=== PATIENT | female | born 1990 | race Caucasian/White ===

== ENCOUNTER 2018-12-10 14:37 | Emergency (ER) | payer MEDICAID ==
[~2018-12-10] VITALS: Ht 177.8 cm; Wt 58.2 kg
[2018-12-10] MEDS ORDERED: normal saline 1000ML IV soln IVB ONE (15:15)
[2018-12-10 15:26] VITALS: BP 121/67
[2018-12-10 15:30] LABS: BASOPHILS % (AUTO) 0.4 % (0-1); EOSINOPHILS # (AUTO) 0.2 X10'3 (0-0.9); EOSINOPHILS % (AUTO) 1.7 % (0-6); HEMATOCRIT 43.7 % (35.0-45.0); HEMOGLOBIN 14.9 g/dl (12.0-16.0); LYMPHOCYTES # (AUTO) 2.5 X10'3 (1.1-4.8); LYMPHOCYTES % (AUTO) 27.3 % (21-51); MEAN CORPUSCULAR HEMOGLOBIN 28.1 PG (27.0-31.0); MEAN CORPUSCULAR HGB CONC 34.2 g/dL (33.0-36.5); MEAN CORPUSCULAR VOLUME 82.2 FL (78-98); MEAN PLATELET VOLUME 7.9 FL (7.4-10.4); MONOCYTES # (AUTO) 0.7 X10'3 (0-0.9); MONOCYTES % (AUTO) 7.9 % (2-12); NEUTROPHILS # (AUTO) 5.8 X10'3 (1.8-7.7); NEUTROPHILS % (AUTO) 62.7 % (42-75); PLATELET COUNT 411 X10'3 (140-440); RED BLOOD COUNT 5.32 X10'6 (4.20-5.60); RED CELL DISTRIBUTION WIDTH 13.4 % (11.5-14.5); WHITE BLOOD COUNT 9.3 X10'3 (4.5-11.0)
[2018-12-10 15:47] LABS: URINE AMPHETAMINE SCREEN NEGATIVE (Neg); URINE BARBITUATE SCREEN NEGATIVE (Neg); URINE BENZODIAZEPINES SCREEN NEGATIVE (Neg); URINE CANNABINOID SCREEN NEGATIVE (Neg); URINE COCAINE SCREEN NEGATIVE (Neg); URINE METHADONE SCREEN NEGATIVE (Neg); URINE OPIATE SCREEN NEGATIVE (Neg); URINE PHENCYCLIDINE SCREEN NEGATIVE (Neg)
[2018-12-10 15:50] LABS: ALANINE AMINOTRANSFERASE 36 U/L (12-78); ALBUMIN 3.1 G/DL (3.4-5.0); ALBUMIN/GLOBULIN RATIO 0.8 (1.1-1.5); ALKALINE PHOSPHATASE 75 IU/L (46-116); ANION GAP 11 (8-16); ASPARTATE AMINO TRANSFERASE 18 U/L (10-37); BILIRUBIN,TOTAL 0.4 MG/DL (0.1-1.0); BLOOD UREA NITROGEN 13 MG/DL (7-18); BUN/CREATININE RATIO 23.6 (6.6-38.0); CALCIUM 8.2 MG/DL (8.5-10.1); CHLORIDE 100 MMOL/L (99-107); CREATININE 0.55 MG/DL (0.40-0.90); ETHANOL < 0.010 GM/DL (0.0-0.010); GLUCOSE 101 MG/DL (70-104); POTASSIUM 3.8 MMOL/L (3.5-5.1); SODIUM 133 MMOL/L (135-145); TOTAL CARBON DIOXIDE 22.4 MMOL/L (24-32); TOTAL PROTEIN 6.8 G/DL (6.4-8.2); eGFR > 90 ML/MIN
[2018-12-10 15:51] LABS: CLARITY,URINE CLEAR (Clear); COLOR,URINE YELLOW (Yellow); GLUCOSE, URINE NEGATIVE (Neg); KETONES,URINE NEGATIVE (Neg); LEUKOCYTE ESTERASE ,URINE NEGATIVE (Neg); NITRITES, URINE NEGATIVE (Neg); OCCULT BLOOD,URINE NEGATIVE (Neg); PH,URINE 6.5 (4.8-8.0); PROTEIN,URINE NEGATIVE (Neg); UROBILINOGEN,URINE 0.2 E.U/dL (0.2-1.0)
[2018-12-10 15:52] LABS: UA COLLECTION TYPE CLN CATCH MIDSTREAM
[2018-12-10 15:53] LABS: INR 1.1 INR; PARTIAL THROMBOPLASTIN TIME 28 SECONDS (22-32)
--- NOTE | 2018-12-10 17:10 | NUR ---
relieving RN for lunch, pt is resting quietly on gurney,
[2018-12-10 17:11] LABS: URINE HCG NEGATIVE (NEG)
[2018-12-10] MEDS ORDERED: LOPE-144 PO (18:19)
[2018-12-10] MEDS ORDERED: HYDR-3686 PO (18:19)
== END 2018-12-10 19:08 | disposition home or self-care (01) ==
LOC: ER 14:38
DX: R55 Syncope and collapse (principal); F11.10 Opioid abuse, uncomplicated; L98.8 Other specified disorders of the skin and subcutaneous tissue; F15.90 Other stimulant use, unspecified, uncomplicated
CPT/HCPCS: 36415; 70450; 71045; 80053; 80305; 80320; 81003; 81025; 85025; 85610; 85730; 93005; 99284; J7030

== ENCOUNTER 2019-01-22 13:19 | Emergency (ER) | payer MEDICAID ==
[~2019-01-22 13:19] MED LIST: LOPE-144 PO
== END 2019-01-22 14:29 | disposition left against medical advice (07) ==
LOC: ER 13:20
DX: J00 Acute nasopharyngitis [common cold] (principal); Z53.21 Procedure and treatment not carried out due to patient leaving prior to being seen by health care provider

== ENCOUNTER 2023-02-27 23:17 | Emergency (ER) | payer MEDICAID ==
[~2023-02-27] VITALS: Ht 177.8 cm; Wt 78.8 kg
--- NOTE | 2023-02-28 01:20 | NUR ---
[facility] WAS NOTIFIED ABOUT THE URINE THAT WAS SENT. [facility]ACE[facility] STATED SHE WILL RECEIVE IT. IT HAS BEEN DOWN THERE UNRECEIVED BY THEM.
[2023-02-28 01:28] LABS: URINE HCG NEGATIVE (NEG)
[2023-02-28 01:43] LABS: CLARITY,URINE CLOUDY (Clear); COLOR,URINE YELLOW (Yellow); GLUCOSE, URINE NEGATIVE (Neg); KETONES,URINE NEGATIVE (Neg); LEUKOCYTE ESTERASE ,URINE TRACE (Neg); NITRITES, URINE NEGATIVE (Neg); OCCULT BLOOD,URINE NEGATIVE (Neg); PH,URINE 6.5 (4.8-8.0); PROTEIN,URINE NEGATIVE (Neg)
[2023-02-28 01:53] LABS: UA COLLECTION TYPE CLN CATCH MIDSTREAM
[2023-02-28 01:54] LABS: BACTERIA,URINE FEW /HPF (Neg); MUCUS STRANDS FEW /LPF (Neg); RBC,URINE 0-2 /HPF (0-2); SQUAMOUS EPITHELIAL CELL,UR FEW /LPF (FEW); WBC,URINE 20-30 /HPF (0-4)
[2023-02-28 01:55] LABS: AMORPHOUS PHOSPHATES 3+; WBC CLUMPS,URINE FEW /HPF (NEGATIVE)
[2023-02-28] MEDS ORDERED: TETanus/Pertussis (Acell)/Diphther VAC/PF (Tdap-Adult) 0.5ml syringe IMVAC ONE (01:55)
[2023-02-28] MEDS ORDERED: gentamicin 0.1% topical ointment 15gm TP SCH (01:55)
[2023-02-28] MEDS ORDERED: CefTRIAXone 1000mg IM Kit (w/lidocaine diluent) IM ONE (02:05)
[2023-02-28] MEDS ORDERED: azithromycin 250mg tablet PO ONE (02:05)
[2023-02-28 02:42] VITALS: BP 129/95
== END 2023-02-28 03:03 | disposition home or self-care (01) ==
LOC: ER 23:19
DX: L97.519 Non-pressure chronic ulcer of other part of right foot with unspecified severity (principal); F17.200 Nicotine dependence, unspecified, uncomplicated; F15.90 Other stimulant use, unspecified, uncomplicated; Z72.89 Other problems related to lifestyle; Z86.19 Personal history of other infectious and parasitic diseases; Z79.899 Other long term (current) drug therapy
CPT/HCPCS: 36415; 73630; 81001; 81025; 87077; 87088; 87186; 87491; 87591; 90471; 90715; 96372; 99284; J0696; A6449

== ENCOUNTER 2023-03-05 00:12 | Emergency (ER) | payer MEDICAID ==
[~2023-03-05] VITALS: Ht 177.8 cm; Wt 77.0 kg
[2023-03-05 00:16] VITALS: BP 138/103
[2023-03-05] MEDS ORDERED: AMOX500C2 PO (01:48)
[2023-03-05] MEDS ORDERED: amoxicillin 250mg capsule PO ONE (01:50)
[2023-03-05] MEDS ORDERED: acetaminophen 325mg tablet PO ONE (01:50)
[2023-03-05] MEDS ORDERED: ondansetron 4mg rapidly disintigrating tab PO ONE (01:50)
== END 2023-03-05 02:05 | disposition home or self-care (01) ==
LOC: ER 00:13
DX: K08.89 Other specified disorders of teeth and supporting structures (principal); F15.20 Other stimulant dependence, uncomplicated
CPT/HCPCS: 99284

== ENCOUNTER 2023-03-28 20:01 | Emergency (ER) | payer MEDICAID ==
[~2023-03-28] VITALS: Ht 177.8 cm; Wt 68.2 kg
[~2023-03-28 20:01] MED LIST changes: +AMOX500C2 PO
[2023-03-28 20:07] VITALS: BP 132/102
[2023-03-28 20:45] LABS: BASOPHILS # (AUTO) 0.1 X10'3 (0-0.2); EOSINOPHILS # (AUTO) 0.1 X10'3 (0-0.9); EOSINOPHILS % (AUTO) 1.9 % (0-6); HEMATOCRIT 41.2 % (35.0-45.0); HEMOGLOBIN 13.9 g/dl (12.0-16.0); LYMPHOCYTES # (AUTO) 2.9 X10'3 (1.1-4.8); LYMPHOCYTES % (AUTO) 39.8 % (21-51); MEAN CORPUSCULAR HEMOGLOBIN 28.3 PG (27.0-31.0); MEAN CORPUSCULAR HGB CONC 33.7 g/dL (33.0-36.5); MEAN CORPUSCULAR VOLUME 83.9 FL (78-98); MEAN PLATELET VOLUME 8.4 FL (7.4-10.4); MONOCYTES # (AUTO) 0.5 X10'3 (0-0.9); MONOCYTES % (AUTO) 6.8 % (2-12); NEUTROPHILS # (AUTO) 3.7 X10'3 (1.8-7.7); NEUTROPHILS % (AUTO) 50.5 % (42-75); PLATELET COUNT 297 X10'3 (140-440); RED BLOOD COUNT 4.91 X10'6 (4.20-5.60); RED CELL DISTRIBUTION WIDTH 13.6 % (11.5-14.5); WHITE BLOOD COUNT 7.2 X10'3 (4.5-11.0)
[2023-03-28 20:56] LABS: ALANINE AMINOTRANSFERASE 23 U/L (12-78); ALBUMIN 4.1 G/DL (3.4-5.0); ALBUMIN/GLOBULIN RATIO 1.3 (1.1-1.5); ALKALINE PHOSPHATASE 67 IU/L (46-116); ANION GAP 3 (8-16); ASPARTATE AMINO TRANSFERASE 17 U/L (10-37); BILIRUBIN,TOTAL 0.2 MG/DL (0.1-1.0); BLOOD UREA NITROGEN 15 MG/DL (7-18); BUN/CREATININE RATIO 20.5 (10.0-20.0); CALCIUM 9.3 MG/DL (8.5-10.1); CHLORIDE 104 MMOL/L (99-107); CREATININE 0.73 MG/DL (0.40-0.90); GLUCOSE 96 MG/DL (70-104); LIPASE 56 U/L (73-393); POTASSIUM 4.3 MMOL/L (3.5-5.1); SODIUM 139 MMOL/L (135-145); TOTAL CARBON DIOXIDE 31.7 MMOL/L (24-32); TOTAL PROTEIN 7.2 G/DL (6.4-8.2); eGFR > 90 ML/MIN
[2023-03-28 22:40] LABS: URINE HCG NEGATIVE (NEG)
[2023-03-28 22:41] LABS: CLARITY,URINE CLEAR (Clear); COLOR,URINE YELLOW (Yellow); GLUCOSE, URINE NEGATIVE (Neg); KETONES,URINE NEGATIVE (Neg); LEUKOCYTE ESTERASE ,URINE NEGATIVE (Neg); NITRITES, URINE NEGATIVE (Neg); OCCULT BLOOD,URINE NEGATIVE (Neg); PROTEIN,URINE NEGATIVE (Neg); UROBILINOGEN,URINE 0.2 E.U/dL (0.2-1.0)
[2023-03-28 22:49] LABS: UA COLLECTION TYPE CLN CATCH MIDSTREAM
== END 2023-03-28 22:00 | disposition home or self-care (01) ==
LOC: ER 20:01
DX: R10.2 Pelvic and perineal pain (principal); F15.10 Other stimulant abuse, uncomplicated; F11.10 Opioid abuse, uncomplicated
CPT/HCPCS: 36415; 80053; 81003; 81025; 83690; 85025; 99283

== ENCOUNTER 2024-09-30 08:56 | Emergency (ER) | payer MEDICAID ==
[~2024-09-30 08:56] MED LIST changes: -AMOX500C2 PO
[2024-09-30 09:14] VITALS: BP 129/91; PULSE 66; RESP 16; O2SAT 98
[2024-09-30 09:46] LABS: BILIRUBIN,URINE NEGATIVE (Neg); CLARITY,URINE CLOUDY (Clear); COLOR,URINE YELLOW (Yellow); GLUCOSE, URINE NEGATIVE (Neg); KETONES,URINE NEGATIVE (Neg); LEUKOCYTE ESTERASE ,URINE SMALL (Neg); NITRITES, URINE NEGATIVE (Neg); OCCULT BLOOD,URINE SMALL (Neg); PROTEIN,URINE TRACE mg/dl (Neg); UA COLLECTION TYPE CLN CATCH MIDSTREAM; UROBILINOGEN,URINE 0.2 E.U/dL (0.2-1.0)
[2024-09-30 09:51] LABS: URINE HCG NEGATIVE (NEG)
[2024-09-30 09:52] LABS: BACTERIA,URINE 1+ /HPF (Neg); MUCUS STRANDS NONE SEEN /LPF (Neg); SQUAMOUS EPITHELIAL CELL,UR FEW /LPF (FEW); WBC CLUMPS,URINE MODERATE /HPF (NEGATIVE); WBC,URINE TNTC /HPF (0-4)
[2024-09-30] MEDS ORDERED: NITR100C PO (09:59)
[2024-09-30 10:13] VITALS: TEMP 98.2
[2024-10-02 05:13] LABS: CHLAMYDIA TRACHOMATIS, NAA Negative (Negative)
== END 2024-09-30 10:18 | disposition home or self-care (01) ==
LOC: ER 08:57
DX: N39.0 Urinary tract infection, site not specified (principal); Z79.899 Other long term (current) drug therapy
CPT/HCPCS: 36415; 81001; 81025; 87077; 87088; 87186; 87491; 99283

== ENCOUNTER 2024-12-03 11:20 | Emergency (ER) | payer MEDICAID ==
[~2024-12-03] VITALS: Ht 177.8 cm; Wt 75.6 kg
[~2024-12-03 11:20] MED LIST changes: +NITR100C PO
[2024-12-03] MEDS ORDERED: DIF150T PO (11:57)
[2024-12-03] MEDS ORDERED: METR-159 PO (11:57)
[2024-12-03 12:03] LABS: BILIRUBIN,URINE NEGATIVE (Neg); CLARITY,URINE CLEAR (Clear); COLOR,URINE YELLOW (Yellow); GLUCOSE, URINE NEGATIVE (Neg); KETONES,URINE NEGATIVE (Neg); LEUKOCYTE ESTERASE ,URINE NEGATIVE (Neg); NITRITES, URINE NEGATIVE (Neg); OCCULT BLOOD,URINE NEGATIVE (Neg); PROTEIN,URINE NEGATIVE (Neg); UROBILINOGEN,URINE 0.2 E.U/dL (0.2-1.0)
[2024-12-03 12:07] LABS: UA COLLECTION TYPE NON-SPECIFIED
[2024-12-03] MEDS: azithromycin 250mg tablet PO ONE (12:08)
[2024-12-03] MEDS: CefTRIAXone 500MG IM Kit w/LIDOcaine IM ONE (12:09)
[2024-12-03 12:21] VITALS: BP 152/80; PULSE 65; RESP 16; TEMP 98; O2SAT 100
== END 2024-12-03 12:23 | disposition home or self-care (01) ==
LOC: ER 11:20
DX: N89.8 Other specified noninflammatory disorders of vagina (principal); F15.90 Other stimulant use, unspecified, uncomplicated; F11.90 Opioid use, unspecified, uncomplicated; F19.90 Other psychoactive substance use, unspecified, uncomplicated; Z72.89 Other problems related to lifestyle; Z79.899 Other long term (current) drug therapy
CPT/HCPCS: 36415; 81003; 87491; 87591; 96372; 99283; J0696

== ENCOUNTER 2025-01-31 17:42 | Emergency (ER) | payer MEDICAID | END 2025-01-31 18:11 | disposition left against medical advice (07) | LOC: ER 17:43 | DX: Z11.3 Encounter for screening for infections with a predominantly sexual mode of transmission (principal); Z53.21 Procedure and treatment not carried out due to patient leaving prior to being seen by health care provider ==

== ENCOUNTER 2025-02-04 23:30 | Emergency (ER) | payer MEDICAID ==
[~2025-02-04] VITALS: Ht 177.8 cm; Wt 73.0 kg
[2025-02-04 23:38] VITALS: BP 137/88; PULSE 65; RESP 16; O2SAT 100
[2025-02-05] MEDS ORDERED: METR-159 PO (00:07)
[2025-02-05] MEDS: CefTRIAXone 500MG IM Kit w/LIDOcaine IM ONE (00:14)
[2025-02-05] MEDS: azithromycin 250mg tablet PO ONE (00:14)
[2025-02-05 00:31] VITALS: TEMP 98
[2025-02-05 01:02] LABS: URINE HCG NEGATIVE (NEG)
== END 2025-02-05 00:27 | disposition home or self-care (01) ==
LOC: ER 23:31
DX: Z20.2 Contact with and (suspected) exposure to infections with a predominantly sexual mode of transmission (principal); Z72.53 High risk bisexual behavior
CPT/HCPCS: 36415; 81025; 87491; 87591; 96372; 99283; J0696

== ENCOUNTER 2025-02-16 23:07 | Emergency (ER) | payer MEDICAID ==
[~2025-02-16] VITALS: Ht 177.8 cm; Wt 65.0 kg
[~2025-02-16 23:07] MED LIST changes: +METR-159 PO
[2025-02-16 23:16] VITALS: TEMP 97.2
[2025-02-17 00:37] LABS: BASOPHILS # (AUTO) 0.1 X10'3 (0-0.2); BASOPHILS % (AUTO) 0.6 % (0-1); EOSINOPHILS # (AUTO) 0.2 X10'3 (0-0.9); EOSINOPHILS % (AUTO) 1.9 % (0-6); HEMOGLOBIN 13.3 g/dl (12.0-16.0); LYMPHOCYTES # (AUTO) 4.1 X10'3 (1.1-4.8); LYMPHOCYTES % (AUTO) 38.7 % (21-51); MEAN CORPUSCULAR HEMOGLOBIN 28.1 PG (27.0-31.0); MEAN CORPUSCULAR VOLUME 82.7 FL (78-98); MEAN PLATELET VOLUME 9.4 FL (7.4-10.4); MONOCYTES % (AUTO) 9.9 % (2-12); NEUTROPHILS # (AUTO) 5.1 X10'3 (1.8-7.7); NEUTROPHILS % (AUTO) 48.9 % (42-75); PLATELET COUNT 334 X10'3 (140-440); RED BLOOD COUNT 4.71 X10'6 (4.20-5.60); RED CELL DISTRIBUTION WIDTH 13.2 % (11.5-14.5); WHITE BLOOD COUNT 10.5 X10'3 (4.5-11.0)
[2025-02-17 00:47] LABS: ALANINE AMINOTRANSFERASE 60 U/L (12-78); ALBUMIN/GLOBULIN RATIO 1.4 (1.1-1.5); ALKALINE PHOSPHATASE 62 IU/L (46-116); ANION GAP 15 (8-16); ASPARTATE AMINO TRANSFERASE 77 U/L (10-37); BILIRUBIN,TOTAL 0.8 MG/DL (0.1-1.0); BLOOD UREA NITROGEN 9 MG/DL (7-18); BUN/CREATININE RATIO 11.5 (10.0-20.0); CALCIUM 8.9 MG/DL (8.5-10.1); CHLORIDE 104 MMOL/L (99-107); CREATININE 0.78 MG/DL (0.40-0.90); GLUCOSE 80 MG/DL (70-104); SODIUM 142 MMOL/L (135-145); TOTAL CARBON DIOXIDE 22.7 MMOL/L (24-32); TOTAL PROTEIN 6.8 G/DL (6.4-8.2); eCRCL 105 ML/MIN; eGFR 85 ML/MIN
[2025-02-17] MEDS: magnesium oxide 400mg tablet PO ONE (01:31)
[2025-02-17] MEDS: POTASSIUM CHLORIDE 20 MEQ/15 ML oral solution PO SCH (01:32)
[2025-02-17] MEDS: LORazepam 0.5 MG tablet PO ONE (02:12)
[2025-02-17 02:19] VITALS: BP 161/105; PULSE 73; RESP 16; O2SAT 99
== END 2025-02-17 02:23 | disposition home or self-care (01) ==
LOC: ER 23:09
DX: R20.0 Anesthesia of skin (principal); F15.90 Other stimulant use, unspecified, uncomplicated; F11.90 Opioid use, unspecified, uncomplicated; F19.90 Other psychoactive substance use, unspecified, uncomplicated; Z72.89 Other problems related to lifestyle; Z79.899 Other long term (current) drug therapy
CPT/HCPCS: 36415; 80053; 85025; 99284